=== PATIENT | female | born 1985 | race Caucasian/White ===

== ENCOUNTER → 2023-12-23 13:12 | Outpatient (REF) | payer OTHER, SELFPAY | LOC: HWRAD 13:12 | PROVIDERS: ATTENDING PHYSICIAN Family Medicine | DX: R19.00 Intra-abdominal and pelvic swelling, mass and lump, unspecified site (principal) | CPT/HCPCS: 76705 ==

== ENCOUNTER → 2024-05-10 09:10 | Outpatient (REF) | payer OTHER, SELFPAY | LOC: HWRAD 09:10 | PROVIDERS: ATTENDING PHYSICIAN Family Medicine | DX: R10.10 Upper abdominal pain, unspecified (principal) | CPT/HCPCS: 76700 ==

== ENCOUNTER → 2025-02-19 13:32 | Outpatient (REF) | payer OTHER, SELFPAY | LOC: WDC 13:32 | PROVIDERS: ATTENDING PHYSICIAN Obstetrics & Gynecology; FAMILY PHYSICIAN Family Medicine | DX: Z12.31 Encounter for screening mammogram for malignant neoplasm of breast (principal) | CPT/HCPCS: 77063; 77067 ==